=== PATIENT | female | born 1995 | race Hispanic/Latino ===

== ENCOUNTER 2017-08-17 06:05 | Day surgery (SDC) | payer MEDICAID ==
[2017-08-16 16:00] LABS: BASOPHILS % (AUTO) 0.3 % (0.0-5.0); EOSINOPHILS % (AUTO) 0.7 % (0.0-8.0); HEMATOCRIT 36.8 % (36-48); LYMPHOCYTES % (AUTO) 23.2 % (21.0-51.0); MEAN CORPUSCULAR HEMOGLOBIN 31.2 pg (27.0-33.0); MEAN CORPUSCULAR HGB CONC 35.4 g/dL (32.0-36.0); MEAN CORPUSCULAR VOLUME 88.1 fL (80-100); MONOCYTES % (AUTO) 7.2 % (3.0-13.0); NEUTROPHILS % (AUTO) 68.6 % (40.0-77.0); PLATELET COUNT (AUTO) 281 K/uL (130-400); RED BLOOD CELL COUNT(AUTO) 4.17 MIL/uL (4.00-5.50); RED CELL DISTRIBUTION WIDTH 13.2 % (11.0-15.5); WHITE BLOOD COUNT (AUTO) 8.3 K/uL (4.8-10.8)
[2017-08-16 16:18] VITALS: BP 133/71
[~2017-08-17] VITALS: Ht 162.6 cm; Wt 72.6 kg
[2017-08-17] VITALS (16 sets, daily range): BP systolic 108–139; BP diastolic 63–92
[2017-08-17] MEDS ORDERED: LACTATED RINGERS 1000ML 1,000 ML IV ONE (06:09)
[2017-08-17] MEDS ORDERED: CEFAZOLIN SODIUM 1 GM VIAL ONE (06:10)
[2017-08-17] MEDS ORDERED: LIDOCAINE PF 2% 5ML ABBOJECT ONE (07:41)
[2017-08-17] MEDS ORDERED: DEXAMETHASONE SOD PHOSPHATE 10MG/ML 1ML VIAL ONE (07:41)
[2017-08-17] MEDS ORDERED: GLYCOPYRROLATE 0.2 MG/ML 5 ML VIAL ONE (07:41)
[2017-08-17] MEDS ORDERED: ONDANSETRON HCL 4 MG/2 ML VIAL ONE (07:41)
[2017-08-17] MEDS ORDERED: FENTANYL CITRATE PF 50 MCG/1 ML 2ML VIAL ONE (07:42)
[2017-08-17] MEDS ORDERED: MIDAZOLAM HCL 1 MG/ML 2ML VIAL ONE ×2 (07:42→08:22)
[2017-08-17] MEDS ORDERED: PROPOFOL 10 MG/ML 20ML VIAL IV ONE (07:42)
[2017-08-17] MEDS ORDERED: WATER FOR INJECTION,STERILE 20 ML VIAL IJ ONE (08:00)
[2017-08-17] MEDS ORDERED: CEFAZOLIN SODIUM 1 GM VIAL IVP ONE (08:00)
== END 2017-08-17 10:02 | disposition home or self-care (01) ==
LOC: DAH 06:05
PROVIDERS: ATTEND Obstetrics & Gynecology
DX: O02.1 Missed abortion (principal)
CPT/HCPCS: 36415; 59820; 84703; 85025; 86850; 86900; 86901; 88305; A4218; A4510; A4600; A4606; J0690; J1100; J2001; J2250 ×2; J2405; J2704; J3010; J3490; J7120 ×2

== ENCOUNTER 2017-08-23 15:13 | Emergency (ER) | payer MEDICAID ==
[2017-08-23 15:46] LABS: BASOPHILS % (AUTO) 0.3 % (0.0-5.0); EOSINOPHILS % (AUTO) 0.7 % (0.0-8.0); HEMATOCRIT 34.5 % (36-48); LYMPHOCYTES % (AUTO) 29.2 % (21.0-51.0); MEAN CORPUSCULAR HGB CONC 35.3 g/dL (32.0-36.0); MEAN CORPUSCULAR VOLUME 87.9 fL (80-100); MONOCYTES % (AUTO) 7.4 % (3.0-13.0); NEUTROPHILS % (AUTO) 62.4 % (40.0-77.0); PLATELET COUNT (AUTO) 323 K/uL (130-400); RED BLOOD CELL COUNT(AUTO) 3.93 MIL/uL (4.00-5.50); RED CELL DISTRIBUTION WIDTH 12.9 % (11.0-15.5); WHITE BLOOD COUNT (AUTO) 6.7 K/uL (4.8-10.8)
[2017-08-23 15:54] LABS: APPEARANCE,URINE Clear (CLEAR); BILIRUBIN,URINE Negative (NEGATIVE); COLOR,URINE Yellow (YELLOW); GLUCOSE, URINE (UA) Negative (NEGATIVE); KETONES,URINE Negative (NEGATIVE); LEUKOCYTE ESTERASE ,URINE Negative (NEGATIVE); NITRATE,URINE Negative (NEGATIVE); OCCULT BLOOD,URINE Trace (NEGATIVE); PH,URINE 7.5 (5.0-8.0); PROTEIN,URINE Negative (NEGATIVE); UROBILINOGEN,URINE 0.2 mg/dL (0.2-1.0)
[2017-08-23 15:54] LABS: CREATININE 0.7 mg/dL (0.5-1.5)
[2017-08-23 15:57] LABS: INR 0.95 (0.85-1.15); PARTIAL THROMBOPLASTIN TIME 22.6 SEC (26.3-35.5)
[2017-08-23 16:06] LABS: BACTERIA,URINE Rare /HPF (None Seen); RBC,URINE 0-1 /HPF (0-1); SQUAMOUS EPITHELIAL CELL,UR 0-2 /HPF (0-2); WBC,URINE None Seen /HPF (0-1)
[2017-08-23 16:20] LABS: ALBUMIN 3.5 g/dL (3.5-5.0); BILIRUBIN,TOTAL 0.2 mg/dL (0.2-1.0); TOTAL PROTEIN, SERUM 7.2 g/dL (6.0-8.3)
== END 2017-08-23 16:33 | disposition home or self-care (01) ==
LOC: EDH 15:13
DX: N93.8 Other specified abnormal uterine and vaginal bleeding (principal); R79.1 Abnormal coagulation profile; Z98.890 Other specified postprocedural states
CPT/HCPCS: 36415; 80053; 81001; 84702; 85025; 85610; 85730